=== PATIENT | male | born 1935 | race Caucasian/White ===

== ENCOUNTER 2019-04-01 18:01 | Emergency (ER) | payer SELFPAY ==
[2019-04-01] MEDS ORDERED: EPINEPHrine 1MG/10ML SYRINGE 1.5IN IV STA ×4 (18:08→18:19)
[2019-04-01] MEDS ORDERED: SODIUM BICARBONATE 8.4% INJ 50 ML SYRINGE IV STA (18:11)
[2019-04-01] MEDS ORDERED: SODIUM BICARBONATE 8.4% INJ 50 ML SYRINGE ONE (21:04)
[2019-04-01] MEDS ORDERED: EPINEPHrine 1MG/10ML SYRINGE 1.5IN ONE (21:04)
== END 2019-04-02 06:20 | disposition expired ==
LOC: M ED 18:01 → EDBD 18:01 → M ED 04-02 06:20
DX: I46.9 Cardiac arrest, cause unspecified (principal)